=== PATIENT | female | born 1960 | race Caucasian/White ===

== ENCOUNTER → 2017-04-11 | Day surgery (SDC) | payer OTHER ==
[~2017-04-11] MED LIST: ASPIRIN EC81 M1 PO; ASPIRIN PO; ATIVAN PO; CELEXA20 MG PO; FLAGYL PO; FLEXERIL PO; FLEXERIL10 MG PO; IBUPROFEN PO; IMODIUM2 MG PO; LANTUS100 U/ML SUBQ; LEVOTHYROXINE50 MCG; LEXAPRO; LIPITOR; METFORMIN HCL500 M1 PO; NEURONTIN; PERCOCET5/325 PO; PHENERGAN PO; PHENTERMINE PO; PREVACID PO; PRILOSEC PO; ROBITUSSIN A-C S5 ML PO; VIBRAMYCIN100 M1 PO; VICODIN 5/500 T1 TAB PO; VOLTAREN75 MG PO; ZANTAC PO; ZANTAC150 MG PO; [UNRECOGNIZED DRUG - OTHER] PO
--- NOTE | ~2017-04-11 | OR ---
Unit #: [id number] #: [id number] Patient: ISAIAH SANDERS [id number] [address] [place], [place] [address] [id number] O MR#: [id number] NAME: ISAIAH SANDERS ROOM: Date of Procedure: 04/11/2017 Admission Date: 04/11/2017 Surgeon: Tyler Gaspar M.D. : 1960 Attending Physician: Tyler Gaspar M.D. Primary Care Physician: Jaylene Pelayo M.D. OPERATIVE REPORT PREOPERATIVE DIAGNOSIS Colorectal cancer screening in an average-risk patient. PROCEDURE PERFORMED Colonoscopy up to cecum and terminal ileum with good prep and visualization. POSTOPERATIVE DIAGNOSES Mild sigmoid diverticulosis, otherwise normal examination up to cecum and terminal ileum. The quality of prep was good. No polyps were present or seen. RECOMMENDATIONS Repeat colonoscopy in 10 years. SEDATION USED MAC. DESCRIPTION OF PROCEDURE Following detailed explanation of the potential risks and complications of a colonoscopy, namely perforation, bleeding, and complications related to sedation, the patient was brought to GI lab and laid in the left lateral decubitus position. A digital rectal examination was performed, which was normal. Lubricated tip of the Olympus video colonoscope was inserted through the anus and advanced under direct vision. The scope was advanced and passed up to sigmoid into descending colon. Scant small diverticula were noticed in this area. The scope tip was then navigated all the way up to cecum with visualization of the ileocecal valve and the appendiceal orifice. Preparation was with good visualization and photodocumentation was obtained. Last several inches of the terminal ileum also visualized after intubation of the ileocecal valve and appeared normal. Successive segments of the colonic mucosa were examined upon withdrawal and appeared unremarkable. There being no polyps, mass lesions, AVMs, or diverticula. Other than the scant diverticula seen in the left colon, no other abnormalities were noted. The patient did not have any hemorrhoids at anal verge. The scope was then withdrawn. The patient returned to recovery area. She tolerated the procedure without any postprocedure complications. Dictated by... Tyler Gaspar M.D. Unit #: [id number] #: [id number] Patient: ISAIAH SANDERS AK/richard TD: 04/11/2017 08:16 JOB #: [id number] CC: Rylee Mauricio M.D. OPERATIVE REPORT Page 1 of 1 X Tyler Gaspar MD X PROCEDURE OPERATIVE NOTE
== END | disposition home or self-care (01) ==
LOC: COPS 05:57
PROVIDERS: Internal Medicine Gastroenterology
PROC: 0DJD8ZZ Inspection of Lower Intestinal Tract, Via Natural or Artificial Opening Endoscopic (ICD-10-PCS; principal; 2017-04-11 07:30)
DX: Z12.11 Encounter for screening for malignant neoplasm of colon (principal); K57.30 Diverticulosis of large intestine without perforation or abscess without bleeding; K21.9 Gastro-esophageal reflux disease without esophagitis; E11.9 Type 2 diabetes mellitus without complications; Z79.84 Long term (current) use of oral hypoglycemic drugs; E78.5 Hyperlipidemia, unspecified; E03.9 Hypothyroidism, unspecified; M54.5 Low back pain; Z79.899 Other long term (current) drug therapy
CPT/HCPCS: 82947; J2250